=== PATIENT | female | born 1985 | race Caucasian/White ===

== ENCOUNTER 2019-03-03 14:32 | Observation (INO) | payer OTHER ==
[~2019-03-03] VITALS: Ht 160 cm; Wt 59.0 kg
[2019-03-03] MEDS ORDERED: morphine 4 MG/ML VIAL IV STA (14:51)
[2019-03-03] MEDS ORDERED: ONDANSETRON 4 MG INJ IV STA (14:51)
[2019-03-03] MEDS ORDERED: SVL800C PO (16:23)
[2019-03-03] MEDS ORDERED: DOCU-159 PO (16:23)
[2019-03-03] MEDS ORDERED: OMEP20CA16 PO (16:24)
[2019-03-03] MEDS ORDERED: CALC667C PO (16:25)
[2019-03-03] MEDS ORDERED: TRAZ-111 PO (16:27)
--- NOTE | 2019-03-03 16:51 | ERD ---
ER Documentation Chief Complaint Chief Complaint CP AT THE CLINIC. DENIES NOW. GIVEN ASA 324 MG HPI This is a 34-year-old female who presents to the emergency with chest pain. 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 Patient has a history of hypertension. She notes over the last several weeks she has had episodes of chest pressure. Occasionally associated with mid dialysis session but also at home. She describes it as pressure-like and central and nonradiating. Patient was given aspirin with complete resolution of symptoms. She denies any fevers or chills, no pleuritic pain. ROS All systems reviewed and are negative except as per history of present illness. Medications Home Meds Reported Medications Trazodone Hcl* (Trazodone Hcl*) 50 Mg Tablet, 50 MG PO QHS, #30 TAB TAKE 1/2 OR 1 TAB-QHS NEEDED 03/03/19 Calcium Acetate* (Calcium Acetate*) 667 Mg Capsule, 667 MG PO WITH MEALS, #30 CAP 03/03/19 Omeprazole* (Omeprazole*) 20 Mg Capsule.dr, 20 MG PO DAILY, #30 CAP 03/03/19 Docusate Sodium* (Docusate Sodium*) 100 Mg Capsule, 100 MG PO BID, #60 CAP 03/03/19 Sevelamer Hcl* (Renagel*) 800 Mg Tablet, 1600 MG PO WITH MEALS, TAB 03/03/19 Allergies Allergies: Coded Allergies: No Known Allergy (Unverified , 03/03/19) PMhx/Soc History of Surgery: Yes (ESTEBAN A/V fistula for dialysis) Anesthesia Reaction: No Hx Neurological Disorder: No Hx Respiratory Disorders: No Hx Cardiac Disorders: Yes (HTN) Hx Psychiatric Problems: No Hx Miscellaneous Medical Probl: Yes (kidney failure on dialysis M/W/F) Hx Alcohol Use: No Hx Substance Use: No Hx Tobacco Use: No Smoking Status: Never smoker FmHx Family History: No diabetes, No coronary disease Physical Exam Vitals Vital Signs Date Temp Pulse Resp B/P (MAP) Pulse Ox O2 O2 Flow FiO2 Time Delivery Rate 03/03/19 99.4 85 16 154/96 98 14:40 (115) Physical Exam General: Well developed, well nourished, no acute distress Head: Normocephalic, atraumatic. Eyes: Pupils equally reactive, EOM intact ENT: Moist mucous membranes Neck: Supple, no lymphadenopathy Respiratory: Lungs clear bilaterally, no distress Cardiovascular: RRR, no murmurs, rubs, or gallops Abdominal: Soft, non-tender, non-distended, no peritoneal signs : Deferred MSK: No edema, no unilateral swelling, 5/5 strength Neurologic: Alert and oriented, moving all extremities, normal speech, no focal weakness, no cerebellar signs Skin: No rash Psych: Normal mood Result Diagram: 03/03/19 1515 03/03/19 1515 Results 24 hrs Laboratory Tests Test 03/03/19 15:09 03/03/19 15:15 POC Beta HCG, Qualitative NEGATIVE White Blood Count 9.1 10^3/ul Red Blood Count 3.10 10^6/ul Hemoglobin 9.9 g/dl Hematocrit 29.8 % Mean Corpuscular Volume 96.1 fl Mean Corpuscular Hemoglobin 31.9 pg Mean Corpuscular Hemoglobin Concent 33.2 g/dl Red Cell Distribution Width 12.2 % Platelet Count 216 10^3/UL Mean Platelet Volume 9.4 fl Immature Granulocytes % 0.400 % Neutrophils % 69.2 % Lymphocytes % 18.9 % Monocytes % 8.6 % Eosinophils % 2.2 % Basophils % 0.7 % Nucleated Red Blood Cells % 0.0 /100WBC Immature Granulocytes # 0.040 10^3/ul Neutrophils # 6.3 10^3/ul Lymphocytes # 1.7 10^3/ul Monocytes # 0.8 10^3/ul Eosinophils # 0.2 10^3/ul Basophils # 0.1 10^3/ul Nucleated Red Blood Cells # 0.0 10^3/ul Sodium Level 139 mmol/L Potassium Level 5.1 mmol/L Chloride Level 98 mmol/L Carbon Dioxide Level 28 mmol/L Anion Gap 13 Blood Urea Nitrogen 57 mg/dl Creatinine 9.46 mg/dl Est Glomerular Filtrat Rate mL/min 5 mL/min Glucose Level 96 mg/dl Calcium Level 9.0 mg/dl Troponin I 0.016 ng/ml Current Medications Medications Dose Sig/Vern Start Time Status Last (Trade) Ordered Route PRN Stop Time Admin Dose Reason Admin Morphine 4 mg ONCE STAT 03/03/19 DC Sulfate IV 14:51 (morphine) 03/03/19 14:52 Ondansetron 4 mg ONCE STAT 03/03/19 DC HCl (Zofran IV 14:51 Inj) 03/03/19 14:52 Procedures/MDM EKG, MONITORS, & DIAGNOSTIC IMAGING: EKG: I reviewed and interpreted a 12-lead EKG. Rhythm: Normal sinus rhythm ST Changes: No contiguous ST segment elevations T waves: No contiguous T wave inversions Impression: No evidence of acute cardiac ischemia Repeat EKG: EKG: I reviewed and interpreted a 12-lead EKG. Rhythm: Normal sinus rhythm ST Changes: No contiguous ST segment elevations T waves: No contiguous T wave inversions Impression: No evidence of acute cardiac ischemia Chest x-ray: I reviewed and interpreted a 1 view of the chest Mediastinum: No enlargement Cardiac silhouette: No cardiomegaly Airspace: Clear lung ureña bilaterally without evidence of pneumothorax Bones: No evidence of fracture PROCEDURES: None LAB INTERPRETATION: Negative troponin MEDICAL DECISION MAKING: The patient's history, physical exam and clinical presentation is concerning for possible cardiogenic etiology and acute coronary syndrome. Based on the patient's clinical exam and history and risk factors, I have a much lower clinical concern for pulmonary embolism, acute aortic dissection, pneumothorax, pneumonia, cardiac tamponade Shared Decision Making: We had a conversation regarding risk stratification, MACE rate, and the risks, benefits, alternatives of disposition planning options. Disposition planning: Given comorbidities and no recent cardiac work-up in patient hospitalization appropriate. ER COURSE: * Aspirin given prior to arrival. Chest pain-free. * Admit for further r/o acs w/u CONSULTATION: None DISPOSITION PLAN: Telemetry admission for management of chest pain to rule out acute coronary syndrome, serial enzymes, risk stratification and consideration of provocative testing CONSULTATION: Accepting care team and consultations: I discussed the current laboratory data, diagnostic imaging and emergency care provided. Admitting team: Dr. Ellis Admitting team indication: Insurance directed Departure Diagnosis: Primary Impression: Chest pain Chest pain type: unspecified Qualified Codes: R07.9 - Chest pain, unspecified Additional Impression: End stage renal disease on dialysis Condition: Stable WILMER ARANA MD Mar 03, 2019 16:51
[2019-03-03] MEDS ORDERED: ONDANSETRON 4 MG INJ IV PRN (18:30)
[2019-03-03] MEDS ORDERED: ACETAMINOPHEN 325 MG TAB PO PRN (18:30)
--- NOTE | 2019-03-03 18:44 | HP ---
Date/Time of Note Date/Time of Note DATE: 03/03/19 TIME: 18:41 Assessment/Plan VTE Prophylaxis SCD applied (from Nsg): Yes Pharmacological prophylaxis: heparin Lines/Catheters IV Catheter Type (from Nrsg): Saline Lock Assessment/Plan Hospital Course Appears well and is in no distress Breathing comfortably JVD mildly elevated 4 out of 6 rumbling systolic murmur is present Left upper extremity fistula Regular rate and rhythm Abdomen is soft nontender nondistended No peripheral edema Assessment and plan: This is a 34-year-old female with a history of end-stage renal disease since childhood who presents with a dry cough over the previous few weeks. Found to have pulmonary edema. I suspect this patient has hypervolemic from her end- stage renal disease and will require dialysis to achieve euvolemia and alleviate her cough. It is also possible that she has some cardiac disease given very pronounced murmur though this may also just be a rumbling sound from her AV fistula -Consult renal for HD -We will give trial of Lasix -Check echocardiogram to exclude cardiac disease as an etiology of pulmonary edema Anemia of CKD: -Stable -Check iron stores Hyperphosphatemia: -Any phosphate binders Result Diagram: 03/03/19 1515 03/03/19 1515 Results 24hrs Laboratory Tests Test 03/03/19 15:09 03/03/19 15:15 POC Beta HCG, Qualitative NEGATIVE White Blood Count 9.1 Red Blood Count 3.10 L Hemoglobin 9.9 L Hematocrit 29.8 L Mean Corpuscular Volume 96.1 Mean Corpuscular Hemoglobin 31.9 Mean Corpuscular Hemoglobin Concent 33.2 Red Cell Distribution Width 12.2 Platelet Count 216 Mean Platelet Volume 9.4 Immature Granulocytes % 0.400 Neutrophils % 69.2 Lymphocytes % 18.9 Monocytes % 8.6 Eosinophils % 2.2 Basophils % 0.7 Nucleated Red Blood Cells % 0.0 Immature Granulocytes # 0.040 H Neutrophils # 6.3 Lymphocytes # 1.7 Monocytes # 0.8 Eosinophils # 0.2 Basophils # 0.1 Nucleated Red Blood Cells # 0.0 Sodium Level 139 Potassium Level 5.1 Chloride Level 98 Carbon Dioxide Level 28 Anion Gap 13 Blood Urea Nitrogen 57 H Creatinine 9.46 H Est Glomerular Filtrat Rate mL/min 5 L Glucose Level 96 Calcium Level 9.0 Troponin I 0.016 HPI/ROS Admit Date/Time Admit Date/Time Hx of Present Illness This is a 34-year-old female with a history of end-stage renal disease since childhood presenting with dry cough Patient on HD for many years. 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 Adherent to HD schedule. Over the past few weeks she has developed a dry cough which is very bothersome. She has pain in her chest that occurs with coughing and is definitely not anginal and actually improves with exertion. She denies any fevers or chills. She has received 2 courses of antibiotics for this from her PMD. Was most recently given doxycycline. She presents today given continued cough and chest pain. X-ray shows some pulmonary edema. She denies any peripheral edema. Not a whole lot of shortness of breath to report either ROS Constitutional: no complaints, improved Eyes: no complaints ENT: no complaints Respiratory: no complaints Cardiovascular: no complaints Gastrointestinal: no complaints Genitourinary: no complaints Musculoskeletal: no complaints Skin: no complaints Neurologic: no complaints Endocrine: no complaints Lymphatic: no complaints Psychological: no complaints, nl mood/affect Immunologic: no complaints PMH/Family/Social Past Medical History Medical History: renal disease Medications Current Medications Ondansetron HCl (Zofran Inj) 4 mg ER BRIDGE PRN IV NAUSEA/VOMITING; Start 03/03/19 at 18:30; Stop 03/04/19 at 18:29 Acetaminophen (Tylenol Tab) 650 mg ER BRIDGE PRN PO .MILD PAIN 1-3 OR TEMP; Start 03/03/19 at 18:30; Stop 03/04/19 at 18:29 Coded Allergies: No Known Allergy (Unverified , 03/03/19) Past Surgical History Past Surgical Hx: no surgical history Family History Significant Family History: no pertinent family hx Social History Alcohol Use: none Smoking Status: Never smoker Drug Use: none Exam/Review of Systems Vital Signs Vitals Vital Signs Date Temp Pulse Resp B/P (MAP) Pulse Ox O2 O2 Flow FiO2 Time Delivery Rate 03/03/19 97 18 158/96 100 Room Air 18:25 (116) 03/03/19 99.4 14:40 BARB CLAROS MD Mar 03, 2019 18:44
[2019-03-03] MEDS ORDERED: NACL 0.9% 3 ML SYG IV SCH (19:00)
[2019-03-03] MEDS ORDERED: HYDROCODONE/APAP (5/325) TAB PO PRN (19:00)
[2019-03-03 21:15] VITALS: Ht 160 cm; Wt 59.0 kg
[2019-03-03 21:23] VITALS: BP 161/106; PULSE 100; RESP 20
[2019-03-03] MEDS: traZODone 50 MG TAB PO SCH (22:13)
[2019-03-03] MEDS: DOCUSATE SODIUM 100 MG CAP PO SCH (22:13)
[2019-03-03] MEDS ORDERED: BENZONATATE 100 MG CAP PO PRN (22:30)
[2019-03-04] VITALS (20 sets, daily range): BP systolic 109–155; BP diastolic 58–98; PULSE 63–99; RESP 18–19
[2019-03-04] MEDS: LIDOCAINE 1% (MDV) 20 ML INJ INJ PRN (00:10)
[2019-03-04] MEDS ORDERED: ONDANSETRON 4 MG INJ IV PRN (02:30)
[2019-03-04] MEDS: SEVELAMER CARBONATE 800 MG TABLET PO SCH ×3 (08:30→17:44)
[2019-03-04] MEDS: CALCIUM ACETATE 667 MG CAP PO SCH ×3 (08:30→17:45)
[2019-03-04] MEDS: DOCUSATE SODIUM 100 MG CAP PO SCH ×2 (08:30→20:56)
--- NOTE | 2019-03-04 08:30 | CONS ---
Consultation Date/Type/Reason Admit Date/Time Date of Consultation: Mar 04, 2019 Type of Consult Nephrology Date/Time of Note DATE: 03/04/19 TIME: 08:27 Hx of Present Illness Full note dictated Thanks Dr. Ellis 1. esrd- unexplained cause. - on hd x2 years. Occasionally needed extra treatment for volume overload. - seen on hd earlier this am. Past Medical History Home Meds Reported Medications Trazodone Hcl* (Trazodone Hcl*) 50 Mg Tablet, 50 MG PO QHS, #30 TAB TAKE 1/2 OR 1 TAB-QHS NEEDED 03/03/19 Calcium Acetate* (Calcium Acetate*) 667 Mg Capsule, 667 MG PO WITH MEALS, #30 CAP 03/03/19 Omeprazole* (Omeprazole*) 20 Mg Capsule.dr, 20 MG PO DAILY, #30 CAP 03/03/19 Docusate Sodium* (Docusate Sodium*) 100 Mg Capsule, 100 MG PO BID, #60 CAP 03/03/19 Sevelamer Hcl* (Renagel*) 800 Mg Tablet, 1600 MG PO WITH MEALS, TAB 03/03/19 Medications Current Medications IV Flush (NS 3 ml) 3 ml PER PROTOCOL IV ; Start 03/03/19 at 19:00 Acetaminophen/ Hydrocodone Bitart ([place] (5/325)) 1 tab Q6H PRN PO .MOD PAIN 4- 6; Start 03/03/19 at 19:00 Calcium Acetate (Phoslo) 667 mg WITH MEALS PO ; Start 03/04/19 at 07:55 Docusate Sodium (Colace) 100 mg BID PO Last administered on 03/03/19at 22:13; Admin Dose 100 MG; Start 03/03/19 at 22:00 Sevelamer Carbonate (Renvela) 1,600 mg WITH MEALS PO ; Start 03/04/19 at 07:55 Trazodone HCl (Desyrel) 50 mg QHS PO Last administered on 03/03/19at 22:13; Admin Dose 50 MG; Start 03/03/19 at 22:00 Benzonatate (Tessalon) 200 mg TID PRN PO COUGH Last administered on 03/03/19at 23:13; Admin Dose 200 MG; Start 03/03/19 at 22:30 Lidocaine (Xylocaine 1% (Mdv) 20 ml) 1 ml WITH DIALYSIS PRN INJ PRIOR TO CANULLATION/HD Last administered on 03/04/19at 00:10; Admin Dose 1 ML; Start 03/03/19 at 23:30 Ondansetron HCl (Zofran Inj) 4 mg Q4H PRN IV NAUSEA AND/OR VOMITING Last administered on 03/04/19at 02:37; Admin Dose 4 MG; Start 03/04/19 at 02:30 Allergies: Coded Allergies: No Known Allergy (Unverified , 03/03/19) Past Surgical History Past Surgical Hx: no surgical history Social History Alcohol Use: none Smoking Status: Never smoker Drug Use: none Exam/Review of Systems Vital Signs Vitals Vital Signs Date Temp Pulse Resp B/P (MAP) Pulse Ox O2 O2 Flow FiO2 Time Delivery Rate 03/04/19 97.5 90 18 126/80 97 Room Air 07:13 (95) Intake and Output 03/03/19 03/03/19 03/04/19 1515:00 23:00 07:00 IntakeIntake Total 350 ml OutputOutput Total 3400 ml BalanceBalance -3050 ml Labs Result Diagram: 03/04/19 0452 03/04/19 0452 Results 24hrs Laboratory Tests Test 03/03/19 15:09 03/03/19 15:15 03/03/19 22:21 03/04/19 04:51 POC Beta HCG, NEGATIVE Qualitative White Blood Count 9.1 Red Blood Count 3.10 L Hemoglobin 9.9 L Hematocrit 29.8 L Mean Corpuscular 96.1 Volume Mean Corpuscular 31.9 Hemoglobin Mean Corpuscular 33.2 Hemoglobin Concent Red Cell 12.2 Distribution Width Platelet Count 216 Mean Platelet Volume 9.4 Immature 0.400 Granulocytes % Neutrophils % 69.2 Lymphocytes % 18.9 Monocytes % 8.6 Eosinophils % 2.2 Basophils % 0.7 Nucleated Red Blood 0.0 Cells % Immature 0.040 H Granulocytes # Neutrophils # 6.3 Lymphocytes # 1.7 Monocytes # 0.8 Eosinophils # 0.2 Basophils # 0.1 Nucleated Red Blood 0.0 Cells # Sodium Level 139 Potassium Level 5.1 Chloride Level 98 Carbon Dioxide Level 28 Anion Gap 13 Blood Urea Nitrogen 57 H Creatinine 9.46 H Est Glomerular 5 L Filtrat Rate mL/min Glucose Level 96 Calcium Level 9.0 Troponin I 0.016 0.023 0.055 Hepatitis B Surface NEGATIVE Antigen Creatine Kinase 82 79 Creatine Kinase 0.3 0.3 Index Creatinine Kinase MB < 0.22 0.23 (Mass) Test 03/04/19 04:52 White Blood Count 9.6 Red Blood Count 3.31 L Hemoglobin 10.5 L Hematocrit 31.4 L Mean Corpuscular 94.9 Volume Mean Corpuscular 31.7 Hemoglobin Mean Corpuscular 33.4 Hemoglobin Concent Red Cell 12.1 Distribution Width Platelet Count 259 Mean Platelet Volume 10.0 Immature 0.300 Granulocytes % Neutrophils % 67.4 Lymphocytes % 20.9 Monocytes % 9.0 Eosinophils % 1.7 Basophils % 0.7 Nucleated Red Blood 0.0 Cells % Immature 0.030 Granulocytes # Neutrophils # 6.5 Lymphocytes # 2.0 Monocytes # 0.9 Eosinophils # 0.2 Basophils # 0.1 Nucleated Red Blood 0.0 Cells # Sodium Level 141 Potassium Level 4.2 Chloride Level 97 Carbon Dioxide Level 34 H Anion Gap 10 Blood Urea Nitrogen 30 #H Creatinine 5.91 #H Est Glomerular 8 L Filtrat Rate mL/min Glucose Level 88 Hemoglobin A1c 5.0 Calcium Level 9.1 Total Bilirubin 0.5 Direct Bilirubin 0.00 Indirect Bilirubin 0.5 Aspartate Amino 40 Transf (AST/SGOT) Alanine 35 Aminotransferase (AL T/SGPT) Alkaline Phosphatase 70 Total Protein 7.5 Albumin 4.1 Globulin 3.40 H Albumin/Globulin 1.20 Ratio Medications Medications Current Medications IV Flush (NS 3 ml) 3 ml PER PROTOCOL IV ; Start 03/03/19 at 19:00 Acetaminophen/ Hydrocodone Bitart ([place] (5/325)) 1 tab Q6H PRN PO .MOD PAIN 4- 6; Start 03/03/19 at 19:00 Calcium Acetate (Phoslo) 667 mg WITH MEALS PO ; Start 03/04/19 at 07:55 Docusate Sodium (Colace) 100 mg BID PO Last administered on 03/03/19at 22:13; Admin Dose 100 MG; Start 03/03/19 at 22:00 Sevelamer Carbonate (Renvela) 1,600 mg WITH MEALS PO ; Start 03/04/19 at 07:55 Trazodone HCl (Desyrel) 50 mg QHS PO Last administered on 03/03/19at 22:13; Admin Dose 50 MG; Start 03/03/19 at 22:00 Benzonatate (Tessalon) 200 mg TID PRN PO COUGH Last administered on 03/03/19at 23:13; Admin Dose 200 MG; Start 03/03/19 at 22:30 Lidocaine (Xylocaine 1% (Mdv) 20 ml) 1 ml WITH DIALYSIS PRN INJ PRIOR TO CANULLATION/HD Last administered on 03/04/19at 00:10; Admin Dose 1 ML; Start 03/03/19 at 23:30 Ondansetron HCl (Zofran Inj) 4 mg Q4H PRN IV NAUSEA AND/OR VOMITING Last administered on 03/04/19at 02:37; Admin Dose 4 MG; Start 03/04/19 at 02:30 MELISSA SALES MD Mar 04, 2019 08:30
--- NOTE | 2019-03-04 09:38 | CONS ---
DATE OF ADMISSION: 03/03/2019 DATE OF CONSULTATION: HISTORY OF PRESENT ILLNESS: The patient is a 34-year-old female with past medical history of end-sta ge renal disease on hemodialysis for 2 years. The patient presents after noticing a dry cough for th e past few weeks. In the emergency room, had an x-ray that showed pulmonary edema. The patient pres ented and had dialysis on dialysis today, feeling better. The patient has been on dialysis for the last 2 years. At the time of her presentation, she had unexplained causes but imaging suggested that she has small kidneys and was unable to do a kidney biopsy to explain cause. The patient has a family history of kidney disease, with her father having kidney problems, but he presented later in life. She still makes urine. She dialyzes 3 times a week. On occasion, she needs to go for an extr a treatment secondary to volume overload. There have been no recent fevers, chills, nausea, vomiting , chest pain, shortness of breath. No recent changes to any of her medications. PAST MEDICAL HISTORY: Significant for end-stage renal disease. MEDICATIONS: From home include: 1. Trazodone. 2. PhosLo. 3. Omeprazole. 4. Renagel. 5. Colace. ALLERGIES: THE PATIENT HAS NO KNOWN ALLERGIES. SOCIAL HISTORY: Does not smoke, drink or use IV drugs. FAMILY HISTORY: No history of kidney disease. REVIEW OF SYSTEMS: A 14-point review of systems attempted and negative. PHYSICAL EXAMINATION: VITAL SIGNS: Temperature 97.5, blood pressure 151/97. HEENT: Normocephalic, atraumatic. Pupils equal and reactive. Oropharynx is moist. NECK: Supple. HEART: Regular rate and rhythm. LUNGS: Clear to auscultation anteriorly. ABDOMEN: Soft, nontender, nondistended. Bowel sounds present. EXTREMITIES: No clubbing, cyanosis or edema. LABORATORY EVALUATION: White count 9.6, hemoglobin 10.5, hematocrit 31.4. Sodium 141, potassium 4.2 , BUN 30, creatinine 5.9. UA is reviewed on microscopy. IMAGING: Chest x-ray reviewed by radiologist. IMPRESSION: 1. End-stage renal disease on hemodialysis. Assess daily for dialysis. Anticipate extra dialysis s ession tomorrow. All medications dosed appropriately for renal failure. Cause of kidney disease is unknown. The patient is already listed for a transplant. Discussed the concept of dry weight with t he patient and she understands. 2. Osteodystrophy. The patient is on PhosLo And Renagel. Will check phosphorus levels. Calcium is within normal range. Check a PTH from outpatient labs. 3. Hepatitis status. Will order full hepatitis panels. [place] precautions in the interim. 4. Anemia of chronic kidney disease, on Epogen as an outpatient, in the therapeutic range. 5. Persistent cough. Follow up imaging after dialyzed aggressively. 6. Questionable history of hypertension. Blood pressure is currently low. Monitor. Dictated By: MELISSA SALES MD DF/NTS Conf#: [id number] DID#: [id number] CC: BARB CLAROS MD;*EndCC*
--- NOTE | 2019-03-04 13:15 | RADRPT ---
Echocardiogram Report Patient Name: Tomasa RUSSOtient ID: [id number] : 1985 (34y 1m)Study Date: 03/04/2019 7:55:14 AM Gender: FAccession #: [id number] Tech: AracelisManav Trinidad [facility] Location: 522 Ref.Physician: BARB CLAROS Height(Cm): BSA: Weight(Kg): Quality: AdequateOrder Physician: BARB CLAROS Account #: Procedures: Echocardiographic Report: Transthoracic echocardiogram with complete 2D, M-Mode, and doppler examination. Indications: Congestive Heart Failure. Measurements: 2D/M Mode Doppler Measurement Value Normal Range Measurement Value Normal Range LVIDd 2D 5.1 [ 3.8 - 5.2 ] cm AV Peak [place] 1.5 [ 100.0 - 170.0 ] cm/sec LVIDs 2D 4.1 [ 2.2 - 3.5 ] cm AV Peak PG 10.0 [ 2.0 - 9.0 ] mmHg LVPWd 2D 0.8 [ 0.6 - 0.9 ] cm LVOT Peak [place] 1.4 [ 70.0 - 110.0 ] cm/sec IVSd 2D 0.9 [ 0.6 - 0.9 ] cm LVOT Peak PG 8.0 [ 2.0 - 6.0 ] mmHg AoR Diam 2D 2.7 [ 2.3 - 3.1 ] cm MV E Peak [place] 0.9 [ 60.0 - 130.0 ] cm/sec EDV 2D 123.0 [ 46.0 - 106.0 ] ml MV A Peak [place] 0.5 [ 100.0 - 120.0 ] cm/sec ESV 2D 75.9 [ 14.0 - 42.0 ] ml MV E/A 1.7 [ 0.8 - 1.5 ] ratio EF 2D 38.3 [ 54.0 - 74.0 ] percent MV Decel Time 162 [ 104 - 258 ] msec LA Dimen 2D 3.3 [ 2.7 - 3.8 ] cm Lat E` Jean [place] 0.1 [ 10.0 - 15.0 ] cm/sec Lateral E/E` 10.7 [ 1.0 - 2.0 ] ratio Med E` [place] 0.1 cm/sec MV E/A 1.7 [ 0.8 - 1.5 ] ratio TR Peak [place] 2.5 [ 100.0 - 280.0 ] cm/sec TR Peak PG 24.0 mmHg RVSP 27.0 [ 10.0 - 36.0 ] mmHg RA Pressure 3.0 mmHg Findings: Left Ventricle: Normal left ventricular wall thickness. Mild enlargement of left ventricle cavity. Mild left ventricular systolic dysfunction. Ejection fraction is visually estimated at 45 %. Right Ventricle: Normal right ventricular size. Normal right ventricular systolic function. Left Atrium: The left atrium is normal in size. Right Atrium: The right atrium is normal in size. Mitral Valve: Mitral valve leaflets appear mildly thickened. Mild mitral annular calcification. Mild mitral valve regurgitation. Aortic Valve: Normal appearance of the aortic valve. No significant aortic stenosis or insufficiency. Tricuspid Valve: Normal appearance of the tricuspid valve. The estimated Peak RVSP is 27 mmHg. There is mild tricuspid regurgitation. Pulmonic Valve: Normal pulmonic valve appearance. Pericardium: Trivial pericardial effusion. Aorta: Normal aortic root. IVC: Normal size and normal respiratory collapse consistent with normal right atrial pressure. Conclusions: Normal left ventricular wall thickness. Mild enlargement of left ventricle cavity. Mild left ventricular systolic dysfunction. Ejection fraction is visually estimated at 45 %. Normal right ventricular size. Normal right ventricular systolic function. Mild mitral valve regurgitation. No significant aortic stenosis or insufficiency. There is mild tricuspid regurgitation. Trivial pericardial effusion. Electronically Signed By: Robin Lehman 2019-03-04 13:14:34 PDT
--- NOTE | 2019-03-04 14:25 | PN ---
Date/Time of Note Date/Time of Note DATE: 03/04/19 TIME: 14:24 Assessment/Plan VTE Prophylaxis Risk score (from Nsg)>0 risk: 0 SCD applied (from Nsg): Yes Pharmacological prophylaxis: heparin Lines/Catheters IV Catheter Type (from Nrsg): Saline Lock Assessment/Plan Hospital Course Appears well and is in no distress Breathing comfortably JVD mildly elevated 4 out of 6 rumbling systolic murmur is present Left upper extremity fistula Regular rate and rhythm Abdomen is soft nontender nondistended No peripheral edema Assessment and plan: This is a 34-year-old female with a history of end-stage renal disease since childhood who presents with a dry cough over the previous few weeks. Found to have pulmonary edema. I suspect this patient has hypervolemic from her end- stage renal disease and will require dialysis to achieve euvolemia and alleviate her cough. It is also possible that she has some cardiac disease given very pronounced murmur though this may also just be a rumbling sound from her AV fi stula -Continue HD per renal - TTE with mildly reduced EF Anemia of CKD: -Stable -Check iron stores Hyperphosphatemia: -Any phosphate binders Result Diagram: 03/04/19 0452 03/04/19 0452 Results 24hrs Laboratory Tests Test 03/03/19 15:09 03/03/19 15:15 03/03/19 22:21 03/04/19 04:51 POC Beta HCG, NEGATIVE Qualitative White Blood Count 9.1 Red Blood Count 3.10 L Hemoglobin 9.9 L Hematocrit 29.8 L Mean Corpuscular 96.1 Volume Mean Corpuscular 31.9 Hemoglobin Mean Corpuscular 33.2 Hemoglobin Concent Red Cell 12.2 Distribution Width Platelet Count 216 Mean Platelet Volume 9.4 Immature 0.400 Granulocytes % Neutrophils % 69.2 Lymphocytes % 18.9 Monocytes % 8.6 Eosinophils % 2.2 Basophils % 0.7 Nucleated Red Blood 0.0 Cells % Immature 0.040 H Granulocytes # Neutrophils # 6.3 Lymphocytes # 1.7 Monocytes # 0.8 Eosinophils # 0.2 Basophils # 0.1 Nucleated Red Blood 0.0 Cells # Sodium Level 139 Potassium Level 5.1 Chloride Level 98 Carbon Dioxide Level 28 Anion Gap 13 Blood Urea Nitrogen 57 H Creatinine 9.46 H Est Glomerular 5 L Filtrat Rate mL/min Glucose Level 96 Calcium Level 9.0 Troponin I 0.016 0.023 0.055 Hepatitis B Surface NEGATIVE Antigen Creatine Kinase 82 79 Creatine Kinase 0.3 0.3 Index Creatinine Kinase MB < 0.22 0.23 (Mass) Test 03/04/19 04:52 White Blood Count 9.6 Red Blood Count 3.31 L Hemoglobin 10.5 L Hematocrit 31.4 L Mean Corpuscular 94.9 Volume Mean Corpuscular 31.7 Hemoglobin Mean Corpuscular 33.4 Hemoglobin Concent Red Cell 12.1 Distribution Width Platelet Count 259 Mean Platelet Volume 10.0 Immature 0.300 Granulocytes % Neutrophils % 67.4 Lymphocytes % 20.9 Monocytes % 9.0 Eosinophils % 1.7 Basophils % 0.7 Nucleated Red Blood 0.0 Cells % Immature 0.030 Granulocytes # Neutrophils # 6.5 Lymphocytes # 2.0 Monocytes # 0.9 Eosinophils # 0.2 Basophils # 0.1 Nucleated Red Blood 0.0 Cells # Sodium Level 141 Potassium Level 4.2 Chloride Level 97 Carbon Dioxide Level 34 H Anion Gap 10 Blood Urea Nitrogen 30 #H Creatinine 5.91 #H Est Glomerular 8 L Filtrat Rate mL/min Glucose Level 88 Hemoglobin A1c 5.0 Calcium Level 9.1 Total Bilirubin 0.5 Direct Bilirubin 0.00 Indirect Bilirubin 0.5 Aspartate Amino 40 Transf (AST/SGOT) Alanine 35 Aminotransferase (AL T/SGPT) Alkaline Phosphatase 70 Total Protein 7.5 Albumin 4.1 Globulin 3.40 H Albumin/Globulin 1.20 Ratio Subjective 24 Hr Interval Summary Free Text/Dictation Cough and breathing improved since HD yesterday Still wtih some dry cough Exam/Review of Systems Exam Vitals Vital Signs Date Temp Pulse Resp B/P (MAP) Pulse Ox O2 O2 Flow FiO2 Time Delivery Rate 03/04/19 98.7 84 18 134/86 96 Room Air 11:15 (102) Intake and Output 03/03/19 03/03/19 03/04/19 1515:00 23:00 07:00 IntakeIntake Total 350 ml OutputOutput Total 3400 ml BalanceBalance -3050 ml Results Results 24hrs Laboratory Tests Test 03/03/19 15:09 03/03/19 15:15 03/03/19 22:21 03/04/19 04:51 POC Beta HCG, NEGATIVE Qualitative White Blood Count 9.1 Red Blood Count 3.10 L Hemoglobin 9.9 L Hematocrit 29.8 L Mean Corpuscular 96.1 Volume Mean Corpuscular 31.9 Hemoglobin Mean Corpuscular 33.2 Hemoglobin Concent Red Cell 12.2 Distribution Width Platelet Count 216 Mean Platelet Volume 9.4 Immature 0.400 Granulocytes % Neutrophils % 69.2 Lymphocytes % 18.9 Monocytes % 8.6 Eosinophils % 2.2 Basophils % 0.7 Nucleated Red Blood 0.0 Cells % Immature 0.040 H Granulocytes # Neutrophils # 6.3 Lymphocytes # 1.7 Monocytes # 0.8 Eosinophils # 0.2 Basophils # 0.1 Nucleated Red Blood 0.0 Cells # Sodium Level 139 Potassium Level 5.1 Chloride Level 98 Carbon Dioxide Level 28 Anion Gap 13 Blood Urea Nitrogen 57 H Creatinine 9.46 H Est Glomerular 5 L Filtrat Rate mL/min Glucose Level 96 Calcium Level 9.0 Troponin I 0.016 0.023 0.055 Hepatitis B Surface NEGATIVE Antigen Creatine Kinase 82 79 Creatine Kinase 0.3 0.3 Index Creatinine Kinase MB < 0.22 0.23 (Mass) Test 03/04/19 04:52 White Blood Count 9.6 Red Blood Count 3.31 L Hemoglobin 10.5 L Hematocrit 31.4 L Mean Corpuscular 94.9 Volume Mean Corpuscular 31.7 Hemoglobin Mean Corpuscular 33.4 Hemoglobin Concent Red Cell 12.1 Distribution Width Platelet Count 259 Mean Platelet Volume 10.0 Immature 0.300 Granulocytes % Neutrophils % 67.4 Lymphocytes % 20.9 Monocytes % 9.0 Eosinophils % 1.7 Basophils % 0.7 Nucleated Red Blood 0.0 Cells % Immature 0.030 Granulocytes # Neutrophils # 6.5 Lymphocytes # 2.0 Monocytes # 0.9 Eosinophils # 0.2 Basophils # 0.1 Nucleated Red Blood 0.0 Cells # Sodium Level 141 Potassium Level 4.2 Chloride Level 97 Carbon Dioxide Level 34 H Anion Gap 10 Blood Urea Nitrogen 30 #H Creatinine 5.91 #H Est Glomerular 8 L Filtrat Rate mL/min Glucose Level 88 Hemoglobin A1c 5.0 Calcium Level 9.1 Total Bilirubin 0.5 Direct Bilirubin 0.00 Indirect Bilirubin 0.5 Aspartate Amino 40 Transf (AST/SGOT) Alanine 35 Aminotransferase (AL T/SGPT) Alkaline Phosphatase 70 Total Protein 7.5 Albumin 4.1 Globulin 3.40 H Albumin/Globulin 1.20 Ratio Medications Medication Current Medications IV Flush (NS 3 ml) 3 ml PER PROTOCOL IV ; Start 03/03/19 at 19:00 Acetaminophen/ Hydrocodone Bitart ([place] (5/325)) 1 tab Q6H PRN PO .MOD PAIN 4- 6 Last administered on 03/04/19 12:26; Admin Dose 1 TAB; Start 03/03/19 at 19:00 Calcium Acetate (Phoslo) 667 mg WITH MEALS PO Last administered on 03/04/19 12:26; Admin Dose 667 MG; Start 03/04/19 at 07:55 Docusate Sodium (Colace) 100 mg BID PO Last administered on 03/04/19 08:30; Admin Dose 100 MG; Start 03/03/19 at 22:00 Sevelamer Carbonate (Renvela) 1,600 mg WITH MEALS PO Last administered on 02/10 12:25; Admin Dose 1,600 MG; Start 03/04/19 at 07:55 Trazodone HCl (Desyrel) 50 mg QHS PO Last administered on 03/03/19 22:13; Admin Dose 50 MG; Start 03/03/19 at 22:00 Benzonatate (Tessalon) 200 mg TID PRN PO COUGH Last administered on 03/03/19 23:13; Admin Dose 200 MG; Start 03/03/19 at 22:30 Lidocaine (Xylocaine 1% (Mdv) 20 ml) 1 ml WITH DIALYSIS PRN INJ PRIOR TO CANULLATION/HD Last administered on 03/04/19 00:10; Admin Dose 1 ML; Start 03/03/19 at 23:30 Ondansetron HCl (Zofran Inj) 4 mg Q4H PRN IV NAUSEA AND/OR VOMITING Last administered on 03/04/19 02:37; Admin Dose 4 MG; Start 03/04/19 at 02:30 BARB CLAROS MD Mar 04, 2019 14:25
--- NOTE | 2019-03-04 14:51 | CONS ---
Consultation Date/Type/Reason Admit Date/Time Mar 03, 2019 at 18:18 Initial Consult Date Racheal Christie is an ESRD a patient who is followed by our group at [facility]. She failed to show up for her treatment today and aftter contacting her residence we were informed that she was admitted earlier this morning with h/o shortness of breath and underwent emergent dialysis for fluid overlooad. She was sent in to the hospital last night after being seen by her PMD. Patient is well known to me. 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 Type of Consult At this time patient is lying down comfortably in bed without supplemental oxygen. VS stable. She was seen earlier today by another career services manager Dr Oneill. Reason for Consultation Exam unremarkable Lungs clear Plan Dc after HD in am if OK with PMD Date/Time of Note DATE: 03/04/19 TIME: 14:38 Exam/Review of Systems Exam Vitals Vital Signs Date Temp Pulse Resp B/P (MAP) Pulse Ox O2 O2 Flow FiO2 Time Delivery Rate 03/04/19 98.7 84 18 134/86 96 Room Air 11:15 (102) Intake and Output 03/03/19 03/03/19 03/04/19 1515:00 23:00 07:00 IntakeIntake Total 350 ml OutputOutput Total 3400 ml BalanceBalance -3050 ml Results Result Diagram: 03/04/19 0452 03/04/19 0452 Results 24hrs Laboratory Tests Test 03/03/19 15:09 03/03/19 15:15 03/03/19 22:21 03/04/19 04:51 POC Beta HCG, NEGATIVE Qualitative White Blood Count 9.1 Red Blood Count 3.10 L Hemoglobin 9.9 L Hematocrit 29.8 L Mean Corpuscular 96.1 Volume Mean Corpuscular 31.9 Hemoglobin Mean Corpuscular 33.2 Hemoglobin Concent Red Cell 12.2 Distribution Width Platelet Count 216 Mean Platelet Volume 9.4 Immature 0.400 Granulocytes % Neutrophils % 69.2 Lymphocytes % 18.9 Monocytes % 8.6 Eosinophils % 2.2 Basophils % 0.7 Nucleated Red Blood 0.0 Cells % Immature 0.040 H Granulocytes # Neutrophils # 6.3 Lymphocytes # 1.7 Monocytes # 0.8 Eosinophils # 0.2 Basophils # 0.1 Nucleated Red Blood 0.0 Cells # Sodium Level 139 Potassium Level 5.1 Chloride Level 98 Carbon Dioxide Level 28 Anion Gap 13 Blood Urea Nitrogen 57 H Creatinine 9.46 H Est Glomerular 5 L Filtrat Rate mL/min Glucose Level 96 Calcium Level 9.0 Troponin I 0.016 0.023 0.055 Hepatitis B Surface NEGATIVE Antigen Creatine Kinase 82 79 Creatine Kinase 0.3 0.3 Index Creatinine Kinase MB < 0.22 0.23 (Mass) Test 03/04/19 04:52 White Blood Count 9.6 Red Blood Count 3.31 L Hemoglobin 10.5 L Hematocrit 31.4 L Mean Corpuscular 94.9 Volume Mean Corpuscular 31.7 Hemoglobin Mean Corpuscular 33.4 Hemoglobin Concent Red Cell 12.1 Distribution Width Platelet Count 259 Mean Platelet Volume 10.0 Immature 0.300 Granulocytes % Neutrophils % 67.4 Lymphocytes % 20.9 Monocytes % 9.0 Eosinophils % 1.7 Basophils % 0.7 Nucleated Red Blood 0.0 Cells % Immature 0.030 Granulocytes # Neutrophils # 6.5 Lymphocytes # 2.0 Monocytes # 0.9 Eosinophils # 0.2 Basophils # 0.1 Nucleated Red Blood 0.0 Cells # Sodium Level 141 Potassium Level 4.2 Chloride Level 97 Carbon Dioxide Level 34 H Anion Gap 10 Blood Urea Nitrogen 30 #H Creatinine 5.91 #H Est Glomerular 8 L Filtrat Rate mL/min Glucose Level 88 Hemoglobin A1c 5.0 Calcium Level 9.1 Total Bilirubin 0.5 Direct Bilirubin 0.00 Indirect Bilirubin 0.5 Aspartate Amino 40 Transf (AST/SGOT) Alanine 35 Aminotransferase (AL T/SGPT) Alkaline Phosphatase 70 Total Protein 7.5 Albumin 4.1 Globulin 3.40 H Albumin/Globulin 1.20 Ratio Medications Medication Current Medications IV Flush (NS 3 ml) 3 ml PER PROTOCOL IV ; Start 03/03/19 at 19:00 Acetaminophen/ Hydrocodone Bitart ([place] (5/325)) 1 tab Q6H PRN PO .MOD PAIN 4- 6 Last administered on 03/04/19at 12:26; Admin Dose 1 TAB; Start 03/03/19 at 19:00 Calcium Acetate (Phoslo) 667 mg WITH MEALS PO Last administered on 03/04/19at 12:26; Admin Dose 667 MG; Start 03/04/19 at 07:55 Docusate Sodium (Colace) 100 mg BID PO Last administered on 03/04/19 08:30; Admin Dose 100 MG; Start 03/03/19 at 22:00 Sevelamer Carbonate (Renvela) 1,600 mg WITH MEALS PO Last administered on 03/04/19 12:25; Admin Dose 1,600 MG; Start 03/04/19 at 07:55 Trazodone HCl (Desyrel) 50 mg QHS PO Last administered on 03/03/19 22:13; Admin Dose 50 MG; Start 03/03/19 at 22:00 Benzonatate (Tessalon) 200 mg TID PRN PO COUGH Last administered on 03/03/19 23:13; Admin Dose 200 MG; Start 03/03/19 at 22:30 Lidocaine (Xylocaine 1% (Mdv) 20 ml) 1 ml WITH DIALYSIS PRN INJ PRIOR TO CANULLATION/HD Last administered on 03/04/19 00:10; Admin Dose 1 ML; Start 03/03/19 at 23:30 Ondansetron HCl (Zofran Inj) 4 mg Q4H PRN IV NAUSEA AND/OR VOMITING Last administered on 03/04/19 02:37; Admin Dose 4 MG; Start 03/04/19 at 02:30 NILSA DAVALOS MD Mar 04, 2019 14:50
[2019-03-04] MEDS ORDERED: HEPARIN 1000 UNITS/ML 10 ML INJ HE SCH (15:00)
[2019-03-04] MEDS: traZODone 50 MG TAB PO SCH (20:57)
[2019-03-05] VITALS (18 sets, daily range): BP systolic 113–149; BP diastolic 68–103; PULSE 78–94; RESP 16–18
[2019-03-05] MEDS: SEVELAMER CARBONATE 800 MG TABLET PO SCH ×2 (08:15→12:43)
[2019-03-05] MEDS: DOCUSATE SODIUM 100 MG CAP PO SCH (08:15)
[2019-03-05] MEDS: CALCIUM ACETATE 667 MG CAP PO SCH ×2 (08:15→12:43)
[2019-03-05] MEDS: LIDOCAINE 1% (MDV) 20 ML INJ INJ PRN (09:55)
--- NOTE | 2019-03-05 12:44 | DS ---
Date/Time of Note Date/Time of Note DATE: 03/05/19 TIME: 12:43 Discharge Summary Admission/Discharge Info Admit Date/Time Mar 03, 2019 at 18:18 Discharge Date/Time Discharge Diagnosis End-stage renal disease Pulmonary edema Patient Condition: Stable Hx of Present Illness This is a 34-year-old female with a history of end-stage renal disease since childhood presenting with dry cough Patient on HD for many years. 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 Adherent to HD schedule. Over the past few weeks she has developed a dry cough which is very bothersome. She has pain in her chest that occurs with coughing and is definitely not anginal and actually improves with exertion. She denies any fevers or chills. She has received 2 courses of antibiotics for this from her PMD. Was most recently given doxycycline. She presents today given continued cough and chest pain. X-ray shows some pulmonary edema. She denies any peripheral edema. Not a whole lot of shortness of breath to report either Hospital Course The patient was admitted with a complaint of shortness of breath and dry cough. She was found to have pulmonary edema. She underwent 2 sessions of dialysis and her symptoms resolved. Echocardiogram was notable for very mildly reduced EF. 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 Home Meds Reported Medications Trazodone Hcl* (Trazodone Hcl*) 50 Mg Tablet, 50 MG PO QHS, #30 TAB TAKE 1/2 OR 1 TAB-QHS NEEDED 03/03/19 Calcium Acetate* (Calcium Acetate*) 667 Mg Capsule, 667 MG PO WITH MEALS, #30 CAP 03/03/19 Omeprazole* (Omeprazole*) 20 Mg Capsule.dr, 20 MG PO DAILY, #30 CAP 03/03/19 Docusate Sodium* (Docusate Sodium*) 100 Mg Capsule, 100 MG PO BID, #60 CAP 03/03/19 Sevelamer Hcl* (Renagel*) 800 Mg Tablet, 1600 MG PO WITH MEALS, TAB 03/03/19 Primary Care Provider Not On Staff Doctor Pending Labs Laboratory Tests Test 03/04/19 18:39 White Blood Count 7.2 10^3/ul (4.8-10.8) Red Blood Count 3.24 10^6/ul (4.20-5.40) Hemoglobin 10.4 g/dl (12.0-16.0) Hematocrit 30.8 % (37.0-47.0) Mean Corpuscular Volume 95.1 fl (82.0-101.0) Mean Corpuscular Hemoglobin 32.1 pg (29.0-33.0) Mean Corpuscular Hemoglobin Concent 33.8 g/dl (32.0-37.0) Red Cell Distribution Width 12.1 % (11.5-14.5) Platelet Count 262 10^3/UL (140-415) Mean Platelet Volume 10.3 fl (7.4-10.4) Immature Granulocytes % 0.300 % (0.001-0.429) Neutrophils % 48.2 % (39.0-77.0) Lymphocytes % 39.5 % (15.0-51.0) Monocytes % 8.4 % (0.0-11.0) Eosinophils % 2.8 % (0.0-7.0) Basophils % 0.8 % (0.0-2.0) Nucleated Red Blood Cells % 0.0 /100WBC (0.0-0.0) Immature Granulocytes # 0.020 10^3/ul (0.0-0.031) Neutrophils # 3.5 10^3/ul (1.6-7.5) Lymphocytes # 2.9 10^3/ul (0.8-2.9) Monocytes # 0.6 10^3/ul (0.3-0.9) Eosinophils # 0.2 10^3/ul (0.0-0.5) Basophils # 0.1 10^3/ul (0.0-0.1) Nucleated Red Blood Cells # 0.0 10^3/ul (0.0-0.0) Sodium Level 139 mmol/L (135-144) Potassium Level 4.1 mmol/L (3.5-5.1) Chloride Level 94 mmol/L (97-110) Carbon Dioxide Level 32 mmol/L (21-31) Anion Gap 13 (5-13) Blood Urea Nitrogen 42 mg/dl (7-20) Creatinine 8.48 mg/dl (0.44-1.00) Est Glomerular Filtrat Rate mL/min 5 mL/min (>60) Glucose Level 119 mg/dl (70-220) Calcium Level 9.4 mg/dl (8.4-10.2) BARB CLAROS MD Mar 05, 2019 12:44
--- NOTE | 2019-03-05 12:49 | PDOCDIS ---
Discharge Instructions DIAGNOSIS Discharge Diagnosis End-stage renal disease Pulmonary edema CONDITION [id number] Patient Condition: Mmtmg2o Stable FOLLOW UP/APPOINTMENTS Follow-up Plan Continue dialysis treatments as prescribed See your doctor in clinic in the next 1 to 2 weeks Return to the hospital if you have any concerning symptoms BARB CLAROS MD Mar 05, 2019 12:49
== END 2019-03-05 16:35 | disposition home or self-care (01) ==
LOC: E/R 14:32 → TEL 18:18 → SUATTDRO 18:39
PROVIDERS: ADMIT Internal Medicine; ATTEND Internal Medicine
DX: J81.1 Chronic pulmonary edema (principal); I07.1 Rheumatic tricuspid insufficiency; I34.0 Nonrheumatic mitral (valve) insufficiency; I12.0 Hypertensive chronic kidney disease with stage 5 chronic kidney disease or end stage renal disease; N18.6 End stage renal disease; Z99.2 Dependence on renal dialysis; Z79.899 Other long term (current) drug therapy
CPT/HCPCS: 71045; 80048; 80053; 81025; 82550; 82553; 83036; 84484; 85025; 87340; 90935; 93005; 93306; J2405; Z7500; Z7610; 36415; G0378; J2270